=== PATIENT | female | born 1955 | race Caucasian/White ===

== ENCOUNTER 2019-12-11 12:00 | Emergency (ER) | payer MEDICAID, MEDICARE ==
--- NOTE | 2019-12-11 12:31 | EDM.PDOC ---
ED HPI GENERAL MEDICAL PROBLEM - General Chief Complaint: Cardiovascular Problem Stated Complaint: HEAVINESS IN CHEST Time Seen by Provider: 12/11/19 12:31 Source of Information: Reports: Patient History Limitations: Reports: No Limitations - History of Present Illness INITIAL COMMENTS - FREE TEXT/NARRATIVE: pt has been experiencing chest pressure. This has been going on for many days. She feels like she is not able to fill her lungs. Duration: Day(s): Location: Reports: Chest, Other (pt feels like she is not able to fill her lungs. ) Associated Symptoms: Reports: Cough, Shortness of Breath - Related Data Allergies Allergy/AdvReac Type Severity Reaction Status Date / Time No Known Allergies Allergy Verified 12/11/19 12:42 Home Meds: Home Meds Gabapentin [Neurontin] 2 cap PO TID 12/11/19 [History] Melatonin 3 mg PO DAILY 12/11/19 [History] Metoprolol Succinate [Toprol XL 50mg] 50 mg PO DAILY 12/11/19 [History] Omeprazole 1 cap PO BID 12/11/19 [History] Sertraline [Zoloft] 50 mg PO DAILY 12/11/19 [History] atorvaSTATin [Lipitor] 40 mg PO DAILY 12/11/19 [History] lisinopriL [Lisinopril] 1 tab PO DAILY 12/11/19 [History] metFORMIN [Glucophage] 1,000 mg PO DAILY 12/11/19 [History] traZODone HCl [Trazodone HCl] 25 mg PO BEDTIME 12/11/19 [History] ED ROS GENERAL - Review of Systems Review Of Systems: See Below Constitutional: Reports: No Symptoms HEENT: Reports: No Symptoms Respiratory: Reports: Shortness of Breath, Other (pt has chest pressure and she feels like she is not able to fill her lungs. ) Cardiovascular: Reports: Other (pt has a feeling of chest pressure. ) Endocrine: Reports: No Symptoms GI/Abdominal: Reports: No Symptoms : Reports: No Symptoms Musculoskeletal: Reports: No Symptoms ED EXAM, GENERAL - Physical Exam Exam: See Below Free Text/Narrative:: pt has a history of chronic chest pressure. This has been going on for a few weeks on and off, She also feels like she can not fill her lungs. Exam Limited By: No Limitations General Appearance: Alert, Anxious, Moderate Distress Ears: Normal TMs Nose: Normal Inspection Throat/Mouth: Normal Inspection Head: Atraumatic Neck: Normal Inspection Respiratory/Chest: Decreased Breath Sounds, Other (pt was a 1.5 pack a day smoker and hse states she quit 2 years ago. She was checked in the past for copd. ) Cardiovascular: Regular Rate, Rhythm GI/Abdominal: Soft, Non-Tender (Female) Exam: Deferred Rectal (Female) Exam: Deferred Back Exam: Normal Inspection Extremities: No Pedal Edema Neurological: Alert, Oriented, Normal Cognition Psychiatric: Normal Affect Course - Vital Signs Last Recorded V/S: Last Vital Signs Temp 36.7 C 12/11/19 12:40 Pulse 69 12/11/19 12:40 Resp 16 12/11/19 12:40 BP 127/74 12/11/19 12:40 Pulse Ox 95 12/11/19 12:40 - Orders/Labs/Meds Orders: Active Orders 24 hr Category Date Time Status EKG Documentation Completion [RC] ASDIRECTED Care 12/11/19 12:30 Active RT Aerosol Therapy [RC] ASDIRECTED Care 12/11/19 13:26 Active EKG 12 Lead [EK] Routine Ther 12/11/19 12:30 Ordered Labs: Laboratory Tests 12/11/19 12/11/19 12/11/19 Range/Units 12:40 12:40 12:40 WBC 8.0 (4.5-11.0) K/uL RBC 4.14 (3.30-5.50) M/uL Hgb 12.1 (12.0-15.0) g/dL Hct 38.0 (36.0-48.0) % MCV 92 (80-98) fL MCH 29 (27-31) pg MCHC 32 (32-36) % Plt Count 281 (150-400) K/uL Neut % (Auto) 62 (36-66) % Lymph % (Auto) 25 (24-44) % [place] % (Auto) 8 H (2-6) % Eos % (Auto) 4 (2-4) % Baso % (Auto) 1 (0-1) % Sodium 138 L (140-148) mmol/L Potassium 4.2 (3.6-5.2) mmol/L Chloride 102 (100-108) mmol/L Carbon Dioxide 27 (21-32) mmol/L Anion Gap 13.2 (5.0-14.0) mmol/L BUN 12 (7-18) mg/dL Creatinine 0.9 (0.6-1.0) mg/dL Est Cr Clr Drug Dosing 63.70 mL/min Estimated GFR (MDRD) > 60 (>60) Glucose 145 H (74-106) mg/dL Calcium 8.8 (8.5-10.1) mg/dL Total Bilirubin 0.4 (0.2-1.0) mg/dL AST 21 (15-37) U/L ALT 40 (12-78) U/L Alkaline Phosphatase 98 (46-116) U/L Troponin I 0.022 (0.000-0.056) ng/mL Total Protein 7.0 (6.4-8.2) g/dL Albumin 3.4 (3.4-5.0) g/dL Globulin 3.6 H (2.3-3.5) g/dL Albumin/Globulin Ratio 0.9 L (1.2-2.2) Urine Color (YELLOW) Urine Appearance (CLEAR) Urine pH (5.0-8.0) Ur Specific [place] (1.008-1.030) Urine Protein (NEGATIVE) mg/dL Urine Glucose (UA) (NEGATIVE) mg/dL Urine Ketones (NEGATIVE) mg/dL Urine Occult Blood (NEGATIVE) Urine Nitrite (NEGATIVE) Urine Bilirubin (NEGATIVE) Urine Urobilinogen (0.2-1.0) EU/dL Ur Leukocyte Esterase (NEGATIVE) Urine RBC (0-5) Urine WBC (0-5) Ur Epithelial Cells Amorphous Sediment Urine Bacteria Urine Mucus 12/11/19 Range/Units 12:50 WBC (4.5-11.0) K/uL RBC (3.30-5.50) M/uL Hgb (12.0-15.0) g/dL Hct (36.0-48.0) % MCV (80-98) fL MCH (27-31) pg MCHC (32-36) % Plt Count (150-400) K/uL Neut % (Auto) (36-66) % Lymph % (Auto) (24-44) % [place] % (Auto) (2-6) % Eos % (Auto) (2-4) % Baso % (Auto) (0-1) % Sodium (140-148) mmol/L Potassium (3.6-5.2) mmol/L Chloride (100-108) mmol/L Carbon Dioxide (21-32) mmol/L Anion Gap (5.0-14.0) mmol/L BUN (7-18) mg/dL Creatinine (0.6-1.0) mg/dL Est Cr Clr Drug Dosing mL/min Estimated GFR (MDRD) (>60) Glucose (74-106) mg/dL Calcium (8.5-10.1) mg/dL Total Bilirubin (0.2-1.0) mg/dL AST (15-37) U/L ALT (12-78) U/L Alkaline Phosphatase (46-116) U/L Troponin I (0.000-0.056) ng/mL Total Protein (6.4-8.2) g/dL Albumin (3.4-5.0) g/dL Globulin (2.3-3.5) g/dL Albumin/Globulin Ratio (1.2-2.2) Urine Color Yellow (YELLOW) Urine Appearance Clear (CLEAR) Urine pH 6.0 (5.0-8.0) Ur Specific [place] 1.010 (1.008-1.030) Urine Protein Negative (NEGATIVE) mg/dL Urine Glucose (UA) Negative (NEGATIVE) mg/dL Urine Ketones Negative (NEGATIVE) mg/dL Urine Occult Blood Negative (NEGATIVE) Urine Nitrite Negative (NEGATIVE) Urine Bilirubin Negative (NEGATIVE) Urine Urobilinogen 0.2 (0.2-1.0) EU/dL Ur Leukocyte Esterase Negative (NEGATIVE) Urine RBC 0-5 (0-5) Urine WBC 0-5 (0-5) Ur Epithelial Cells Few Amorphous Sediment Not seen Urine Bacteria Rare Urine Mucus Not seen Meds: Medications Discontinued Medications Generic Name Dose Route Start Last Admin Trade Name Freq PRN Reason Stop Dose Admin Albuterol 2.5 mg 12/11/19 13:26 12/11/19 13:44 Proventil Neb Soln NEB 12/11/19 13:27 2.5 mg ONETIME ONE Administration - Re-Assessments/Exams Free Text/Narrative Re-Assessment/Exam: 12/11/19 14:21 pt had a normal ekg. Her chest xray revealed some chronic lung changes. She has chest pressure. Her trop is normal. Departure - Departure Time of Disposition: 14:13 Disposition: Home, Self-Care 01 Condition: Fair Clinical Impression: Atypical chest pain Referrals: Shira Ellington DO [Primary Care Provider] - Forms: ED Department Discharge Care Plan Goals: schedule a exercise cardiolyte, pt is to return if her symptoms get worse, albuterol inhaler 2 puffs bid. Sepsis Event Note - Focused Exam Vital Signs: Vital Signs Temp Pulse Resp BP Pulse Ox 12/11/19 12:40 36.7 C 69 16 127/74 95 12/11/19 12:24 36.7 C 69 16 127/74 95 Date Exam was Performed: 12/11/19 Time Exam was Performed: 14:17 - My Orders Last 24 Hours: My Active Orders 12/11/19 12:30 EKG Documentation Completion [RC] ASDIRECTED EKG 12 Lead [EK] Routine 12/11/19 13:26 RT Aerosol Therapy [RC] ASDIRECTED - Assessment/Plan Last 24 Hours: My Active Orders 12/11/19 12:30 EKG Documentation Completion [RC] ASDIRECTED EKG 12 Lead [EK] Routine 12/11/19 13:26 RT Aerosol Therapy [RC] ASDIRECTED
--- NOTE | 2019-12-11 13:23 | CR ---
CHEST: 2 view CLINICAL HISTORY:Chest pressure COMPARISON:None FINDINGS: The heart size, pulmonary vascularity and hilar structures are normal. No infiltrate effusion or pneumothorax is seen. There are atherosclerotic changes in the aorta. There is mild hyperaeration. IMPRESSION: No acute cardiopulmonary process. Mild hyperaeration
[2019-12-11] MEDS ORDERED: Albuterol 0.083% 2.5 MG/3 ML Neb Soln NEB ONE (13:26)
== END 2019-12-11 14:26 | disposition home or self-care (01) ==
LOC: JP.ED 12:00
DX: R07.89 Other chest pain (principal); Z79.899 Other long term (current) drug therapy
CPT/HCPCS: 36415; 71046; 71046-26; 80053; 81001; 84484; 85025; 93005; 93010; 94640; 99284; 99285-25

== ENCOUNTER 2021-04-01 06:23 | Day surgery (SDC) | payer MEDICARE ==
[2021-04-01] MEDS ORDERED: Sodium Chloride 0.9% 1,000 ML IV SCH (06:45)
[2021-04-01] MEDS ORDERED: Propofol 200 MG/20 ML SDV ONE (07:11)
[2021-04-01] MEDS ORDERED: fentaNYL 100 MCG/2 ML SDV ONE (07:11)
--- NOTE | 2021-04-02 21:48 | OR ---
DATE OF PROCEDURE: 04/01/2021 SURGEON: Robert Bravo MD PROCEDURE: Esophagogastroduodenoscopy. FINDINGS: Mild inflammation at the GE junction (biopsied in all 4 quadrants using cold biopsy forceps). COMPLICATIONS: None. BUYERS' AGENT: None. ANESTHESIA: MAC. PREOPERATIVE DIAGNOSIS: Epigastric pain. POSTOPERATIVE DIAGNOSIS: Epigastric pain. RISKS: Risks, benefits, alternatives, and limitations, including, but not limited to, infection, bleeding, perforation, false positives, and false negatives, were explained to the patient, who wished to proceed. PROCEDURE IN DETAIL: The patient was placed in the left lateral decubitus position. The EGD scope was introduced and advanced atraumatically to the 2nd part of the duodenum. No evidence of duodenitis or ulceration was noted. In the stomach itself, there was no gastritis or ulceration. No retained food. The GE junction showed mild inflammation concerning for reflux disease. This was biopsied in all 4 quadrants using cold biopsy forceps. The air was removed from the stomach. The remaining of the esophagus was inspected without abnormality. The patient tolerated the procedure well. Robert Bravo MD /[id number]
== END 2021-04-01 09:10 | disposition home or self-care (01) ==
LOC: JP.SDS 06:23
PROVIDERS: ATTEND Surgery
DX: K20.90 Esophagitis, unspecified without bleeding (principal); I10 Essential (primary) hypertension; I25.10 Atherosclerotic heart disease of native coronary artery without angina pectoris; G47.33 Obstructive sleep apnea (adult) (pediatric); E11.9 Type 2 diabetes mellitus without complications; F17.200 Nicotine dependence, unspecified, uncomplicated
CPT/HCPCS: 43239; J2704; J3010; J7030

== ENCOUNTER 2021-04-28 10:41 | Emergency (ER) | payer MEDICARE ==
--- NOTE | 2021-04-28 11:42 | CR ---
CHEST: 2 view CLINICAL HISTORY:Chest pressure COMPARISON:2020 FINDINGS: The heart size, pulmonary vascularity and hilar structures are normal. No infiltrate effusion or pneumothorax is seen. There are atherosclerotic changes in the aorta. IMPRESSION: No acute cardiopulmonary process.
--- NOTE | 2021-04-28 12:27 | EDM.PDOC ---
ED HPI GENERAL MEDICAL PROBLEM - General Chief Complaint: Chest Pain Stated Complaint: MEDICAL [facility]IA [facility] Time Seen by Provider: 04/28/21 10:53 Source of Information: Reports: Patient, EMS History Limitations: Reports: No Limitations - History of Present Illness INITIAL COMMENTS - FREE TEXT/NARRATIVE: Lucie is a 65-year-old female presenting to the ED via [facility] with complaint of chest tightness that has been ongoing for the last 1 to 2 weeks. The patient reports of feeling like she is having a hard time getting her breath. She rates her pain at a 2 out of 10. She did take an aspirin 81 mg and was given 3 subsequent additional aspirins by EMS. She has a history for coronary disease status post stent placement several years ago. She is unclear whether this is similar pain to that. Patient is currently symptom-free she did receive a spray of nitro by EMS which completely resolved her symptoms. The patient has been experiencing nasal congestion and postnasal drip this fall. She states that each year she starts to have this until spring which is consistent with seasonal allergies. She has had a dry cough. She states at times it hurts to take a deep breath then or she feels like she cannot take a deep breath in. Patient is very vague concerning the symptoms. It does not seem that she has been experiencing much in the way of exertional symptoms although she says that if she is very active she does get more short of breath. She states that she is not very active because of sight issues. - Related Data Allergies Allergy/AdvReac Type Severity Reaction Status Date / Time No Known Allergies Allergy Verified 04/28/21 10:45 Home Meds: Home Meds Gabapentin [Neurontin] 200 mg PO TID 12/11/19 [History] Melatonin 3 mg PO BEDTIME 12/11/19 [History] Metoprolol Succinate [Toprol XL 50mg] 50 mg PO DAILY 12/11/19 [History] Omeprazole 20 mg PO BIDMEALS 12/11/19 [History] Sertraline [Zoloft] 200 mg PO DAILY 12/11/19 [History] metFORMIN [Glucophage] 1,000 mg PO BEDTIME 12/11/19 [History] traZODone HCl [Trazodone HCl] 100 mg PO BEDTIME 12/11/19 [History] Albuterol Sulfate [Albuterol Sulfate Hfa] 2 puff INH BID 03/29/21 [History] Aspirin 81 mg PO DAILY 03/29/21 [History] Betamethasone Dipropionate [Diprolene AF 0.05% Crm] 1 applic TOP BID 03/29/21 [History] Carboxymethylcellulose Sodium [Refresh Liquigel 1%] 1 drop EYEBOTH DAILY PRN 03/29/21 [History] Hydrocortisone [Hydrocortisone 2.5% Crm] 1 applic TOP BID 03/29/21 [History] Mineral Oil/Petrolatum,White [Genteal Pm Ointment] 1 drop EYEBOTH BEDTIME 03/29/21 [History] Multivitamin with Minerals [Multiple Vitamin] 1 tab PO DAILY 03/29/21 [History] Nitroglycerin [Nitrostat] 0.4 mg PO ASDIRECTED 03/29/21 [History] [place]-3 Fatty Acids [Maxepa] 1,000 mg PO DAILY 03/29/21 [History] Vitamin B Complex [B Complex] 1 tab PO DAILY 03/29/21 [History] atorvaSTATin [Lipitor] 40 mg PO BEDTIME 03/29/21 [History] risperiDONE [Risperdal] 0.5 mg PO BID 03/29/21 [History] Past Medical History HEENT History: Reports: Cataract, Impaired Vision, Other (See Below) Other HEENT History: dry eyes Cardiovascular History: Reports: High Cholesterol, Hypertension, Stents Respiratory History: Reports: Sleep Apnea Other Respiratory History: cpap- hasnt been using Gastrointestinal History: Reports: None, GERD Genitourinary History: Reports: None 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: Musculoskeletal History: Reports: Arthritis, Back Pain, Chronic Neurological History: Reports: None Psychiatric History: Reports: Anxiety, Depression Endocrine/Metabolic History: Reports: Diabetes, Type II Hematologic History: Reports: None Immunologic History: Reports: None Oncologic (Cancer) History: Reports: Malignant Melanoma Dermatologic History: Reports: Other (See Below) Other Dermatologic History: benign cyst removed from neck - Infectious Disease History Infectious Disease History: Reports: Chicken Pox, Measles - Past Surgical History Head Surgeries/Procedures: Reports: None HEENT Surgical History: Reports: Cataract Surgery Cardiovascular Surgical History: Reports: Coronary Artery Stent Respiratory Surgical History: Reports: None GI Surgical History: Reports: Colonoscopy Female Surgical History: Reports: Hysterectomy Endocrine Surgical History: Reports: None Neurological Surgical History: Reports: None Musculoskeletal Surgical History: Reports: Carpal Tunnel, Shoulder Surgery Oncologic Surgical History: Reports: None Dermatological Surgical History: Reports: None Social & Family History - Tobacco Use Tobacco Use Status *Q: Former Tobacco User Used Tobacco, but Quit: Yes Month/Year Tobacco Last Used: 2018 - Caffeine Use Caffeine Use: Reports: Coffee ED ROS GENERAL - Review of Systems Review Of Systems: See Below Constitutional: Reports: No Symptoms HEENT: Reports: Rhinitis, Sinus Problem, Vision Change (Patient has chronic vision problems) Respiratory: Reports: Shortness of Breath Cardiovascular: Reports: Chest Pain (Chest tightness but not pain), Dyspnea on Exertion (Possibly) Endocrine: Reports: No Symptoms GI/Abdominal: Reports: No Symptoms : Reports: No Symptoms Musculoskeletal: Reports: No Symptoms Skin: Reports: No Symptoms Neurological: Reports: No Symptoms Psychiatric: Reports: No Symptoms Hematologic/Lymphatic: Reports: No Symptoms Immunologic: Reports: Seasonal Allergy ED EXAM, GENERAL - Physical Exam Exam: See Below Exam Limited By: No Limitations General Appearance: Alert, No Apparent Distress Eye Exam: Bilateral Eye: EOMI, PERRL Nose: Nasal Swelling, Clear Rhinorrhea Throat/Mouth: Normal Inspection, Normal Oropharynx, Normal Voice, No Airway Compromise Head: Atraumatic, Normocephalic Neck: Normal Inspection, Supple, Non-Tender, Full Range of Motion Respiratory/Chest: No Respiratory Distress, Lungs Clear, Normal Breath Sounds, No Accessory Muscle Use, Chest Non-Tender Cardiovascular: Normal Peripheral Pulses, Regular Rate, Rhythm, No Murmur Peripheral Pulses: 2+: Radial (L), Radial (R), Posterior Tibial (L), Posterior Tibial (R) GI/Abdominal: Normal Bowel Sounds, Soft, Non-Tender Back Exam: Normal Inspection Extremities: Normal Inspection, Normal Range of Motion, Normal Capillary Refill Neurological: Alert, Oriented, Normal Cognition, No Motor/Sensory Deficits Psychiatric: Normal Affect, Normal Mood, Anxious Skin Exam: Warm, Dry, Intact, Normal Color #1 Interpretation EKG Date: 04/28/21 Time: 10:58 Rhythm: NSR Rate (Beats/Min): 69 [place]: Normal P-Wave: Present QRS: Normal ST-T: Normal QT: Normal Comparison: No Change (No change when compared to previous EKG on 12/01/2019.) Course - Vital Signs Last Recorded V/S: Last Vital Signs Temp 36.4 C 04/28/21 10:42 Pulse 68 04/28/21 12:21 Resp 16 04/28/21 12:21 BP 124/72 04/28/21 12:21 Pulse Ox 95 04/28/21 12:21 - Orders/Labs/Meds Orders: Active Orders 24 hr Category Date Time Status EKG 12 Lead [EK] Routine Ther 04/28/21 10:53 Ordered Labs: Laboratory Tests 04/28/21 04/28/21 Range/Units 11:09 11:09 WBC 10.1 (4.5-11.0) K/uL RBC 3.95 (3.30-5.50) M/uL Hgb 11.3 L (12.0-15.0) g/dL Hct 35.2 L (36.0-48.0) % MCV 89 (80-98) fL MCH 29 (27-31) pg MCHC 32 (32-36) % Plt Count 260 (150-400) K/uL Neut % (Auto) 68.3 H (36-66) % Lymph % (Auto) 18.5 L (24-44) % [place] % (Auto) 8.9 H (2-6) % Eos % (Auto) 3.7 (2-4) % Baso % (Auto) 0.6 (0-1) % Sodium 139 L (140-148) mmol/L Potassium 4.2 (3.6-5.2) mmol/L Chloride 104 (100-108) mmol/L Carbon Dioxide 26 (21-32) mmol/L Anion Gap 13.2 (5.0-14.0) mmol/L BUN 19 H D (7-18) mg/dL Creatinine 0.9 (0.6-1.0) mg/dL Est Cr Clr Drug Dosing 62.86 mL/min Estimated GFR (MDRD) > 60 (>60) Glucose 126 H (74-106) mg/dL Calcium 8.4 L (8.5-10.1) mg/dL Total Bilirubin 0.2 (0.2-1.0) mg/dL AST 20 (15-37) U/L ALT 28 (12-78) U/L Alkaline Phosphatase 86 (46-116) U/L Troponin I < 0.017 (0.000-0.056) ng/mL C-Reactive Protein 0.11 (0.0-0.3) mg/dL Total Protein 6.5 (6.4-8.2) g/dL Albumin 3.1 L (3.4-5.0) g/dL Globulin 3.4 (2.3-3.5) g/dL Albumin/Globulin Ratio 0.9 L (1.2-2.2) - Radiology Interpretation Free Text/Narrative:: I reviewed the patient's chest x-ray as well as the report. There is no acute cardiopulmonary abnormalities. - Re-Assessments/Exams Free Text/Narrative Re-Assessment/Exam: 04/28/21 12:36 reviewed the patient's labs showing a normal CBC, comprehensive metabolic panel, troponin, and C-reactive protein. Her EKG is also unremarkable showing normal sinus rhythm with a rate of 69 bpm and no evidence for ST elevation or depression. I feeling is that her symptoms are more attributed to seasonal allergies, postnasal drip and bronchospasm. I recommend that she take Flonase 2 sprays in each nostril twice daily as well as one of the [id number] allergy medicines like Zyrtec, Claritin, or Jada. If not improving she should follow-up with her primary care provider. At this time she is suitable for discharge in satisfactory condition. Indications return to the ED were discussed. Patient is in agreement with this plan. Departure - Departure Time of Disposition: 12:25 Disposition: Home, Self-Care 01 Clinical Impression: Chest tightness Seasonal allergic rhinitis Qualifiers: Allergic rhinitis trigger: unspecified Qualified Code(s): J30.2 - Other seasonal allergic rhinitis Instructions: Allergic Rhinitis, Adult Referrals: Catrina Lucia PA-C [Primary Care Provider] - Forms: ED Department Discharge Care Plan Goals: Your work-up today has not shown any evidence of abnormalities of the heart or lungs. I suspect that the majority of your symptoms are arising from your seasonal allergies causing allergic rhinitis and chronic postnasal drip. I would recommend using [id number] Flonase 2 sprays in each nostril twice daily and taking one of the [id number] allergy medicines like Zyrtec, Jada, or Claritin. Follow-up with your primary provider if not improving. Sepsis Event Note (ED) - Evaluation Sepsis Screening Result: No Definite Risk - Focused Exam Vital Signs: Vital Signs Temp Pulse Resp BP Pulse Ox 04/28/21 12:21 68 16 124/72 95 04/28/21 10:42 36.4 C 74 14 132/78 97 - Problem List & Annotations (1) Chest tightness SNOMED Code(s): 66576874 Code(s): R07.89 - OTHER CHEST PAIN Status: Acute Priority: High Current Visit: Yes (2) Seasonal allergic rhinitis SNOMED Code(s): 671491863 Code(s): J30.2 - OTHER SEASONAL ALLERGIC RHINITIS Status: Acute Priority: High Current Visit: Yes Qualifiers: Allergic rhinitis trigger: unspecified Qualified Code(s): J30.2 - Other seasonal allergic rhinitis - Problem List Review Problem List Initiated/Reviewed/Updated: Yes - My Orders Last 24 Hours: My Active Orders 04/28/21 10:53 EKG 12 Lead [EK] Routine - Assessment/Plan Last 24 Hours: My Active Orders 04/28/21 10:53 EKG 12 Lead [EK] Routine
== END 2021-04-28 12:43 | disposition home or self-care (01) ==
LOC: JP.ED 10:41
DX: R07.89 Other chest pain (principal); J30.2 Other seasonal allergic rhinitis; E78.00 Pure hypercholesterolemia, unspecified; I10 Essential (primary) hypertension; K21.9 Gastro-esophageal reflux disease without esophagitis; M19.90 Unspecified osteoarthritis, unspecified site; E11.9 Type 2 diabetes mellitus without complications; Z87.891 Personal history of nicotine dependence; Z79.82 Long term (current) use of aspirin; Z79.899 Other long term (current) drug therapy; Z95.5 Presence of coronary angioplasty implant and graft
CPT/HCPCS: 36415; 71046; 71046-26; 80053; 84484; 85025; 86140; 93005; 99285-25

== ENCOUNTER 2022-09-19 10:15 | Emergency (ER) | payer MEDICARE ==
[2022-09-19 12:00] LABS: ESTIMATED GFR 81 mL/min (>60)
[2022-09-19] MEDS ORDERED: risperiDONE 0.5 MG Tab PO ONE (12:41)
[2022-09-19] MEDS ORDERED: Gabapentin 100 MG Cap PO ONE (12:41)
[2022-09-19 13:27] LABS: CORONAVIRUS COVID-19 NAA NEGATIVE (NEGATIVE)
== END 2022-09-19 14:02 | disposition home or self-care (01) ==
LOC: JP.ED 10:15
DX: R53.1 Weakness (principal); Z87.891 Personal history of nicotine dependence; Z20.822 Contact with and (suspected) exposure to COVID-19
CPT/HCPCS: 0241U; 36415; 70450; 80053; 82550; 84443; 85027; 99285; A9270; 99283

== ENCOUNTER 2022-09-20 07:33 | Observation (INO) | payer MEDICARE ==
[2022-09-20] MEDS ORDERED: risperiDONE 0.5 MG Tab PO ONE (08:05)
[2022-09-20] MEDS ORDERED: Gabapentin 100 MG Cap PO ONE (08:05)
[2022-09-20] MEDS ORDERED: Sodium Chloride 0.9% 1,000 ML IV SCH (09:15)
[2022-09-20] MEDS ORDERED: Acetaminophen 500 MG Tab PO ONE (10:33)
[2022-09-20] MEDS ORDERED: Benzonatate 100 MG Cap PO PRN (12:39)
[2022-09-20] MEDS ORDERED: Ondansetron 4 MG/2 ML SDV IV PRN (12:39)
[2022-09-20] MEDS ORDERED: Albuterol 0.083% 2.5 MG/3 ML Neb Soln NEB PRN (12:39)
[2022-09-20] MEDS ORDERED: Magnesium Hydroxide 400 MG/5 ML Susp 30 ML Cup PO PRN (12:39)
[2022-09-20] MEDS ORDERED: Ondansetron 4 MG Tab.DIS PO PRN (12:39)
[2022-09-20] MEDS ORDERED: guaiFENesin/Dextromethorphan 100-10 MG/5 ML Soln 10 ML Cup PO PRN (12:39)
[2022-09-20] MEDS: Sodium Chloride 0.9% 1,000 ML IV SCH ×2 (13:38→21:40)
[2022-09-20] MEDS ORDERED: Azithromycin 250 MG Tab PO SCH (14:00)
[2022-09-20] MEDS: Enoxaparin 40 MG/0.4 ML Syringe SUBCUT SCH (14:27)
[2022-09-20] MEDS: Gabapentin 100 MG Cap PO SCH ×2 (15:15→21:31)
[2022-09-20] MEDS: Acetaminophen 325 MG Tab PO PRN (19:46)
[2022-09-20] MEDS: Lactobacillus Rhamnosus GG (Probiotic) Cap PO SCH (21:31)
[2022-09-20] MEDS: traZODone 50 MG Tab PO SCH (21:31)
[2022-09-20] MEDS: risperiDONE 0.5 MG Tab PO SCH (21:31)
[2022-09-20] MEDS: Melatonin 3 MG Tab PO SCH (21:31)
[2022-09-20] MEDS: atorvaSTATin 20 MG Tab PO SCH (21:31)
[2022-09-20] MEDS: metFORMIN 500 MG Tab PO SCH (21:32)
[2022-09-21] MEDS: Sodium Chloride 0.9% 1,000 ML IV SCH ×2 (05:42→16:45)
[2022-09-21] MEDS: Pantoprazole 40 MG Tab.CR PO SCH (07:53)
[2022-09-21] MEDS: Acetaminophen 325 MG Tab PO PRN ×2 (08:04→21:14)
[2022-09-21] MEDS ORDERED: Sodium Chloride 0.9% 1,000 ML IV SCH (08:15)
[2022-09-21] MEDS: Gabapentin 100 MG Cap PO SCH ×3 (08:42→21:14)
[2022-09-21] MEDS: Metoprolol Succinate 50 MG Tab.ER PO SCH (08:42)
[2022-09-21] MEDS: metFORMIN 500 MG Tab PO SCH ×2 (08:47→21:11)
[2022-09-21] MEDS: Aspirin 81 MG Tab.Chew PO SCH (08:48)
[2022-09-21] MEDS: risperiDONE 0.5 MG Tab PO SCH ×2 (08:48→21:13)
[2022-09-21] MEDS: Multivitamins with Iron/Calcium/Folic Acid/Minerals Tab PO SCH (08:49)
[2022-09-21] MEDS: Lactobacillus Rhamnosus GG (Probiotic) Cap PO SCH ×2 (08:49→21:11)
[2022-09-21] MEDS: Vitamin B Complex Tab PO SCH (08:49)
[2022-09-21] MEDS: Sertraline 50 MG Tab PO SCH (08:49)
[2022-09-21] MEDS: cefTRIAXone 1 GM in Sodium Chloride 0.9% 50 ML IV SCH (10:51)
[2022-09-21] MEDS: Doxycycline 100 MG in Sodium Chloride 0.9% 100 ML IV SCH ×2 (11:53→21:16)
[2022-09-21] MEDS: Enoxaparin 40 MG/0.4 ML Syringe SUBCUT SCH (15:04)
[2022-09-21] MEDS: Melatonin 3 MG Tab PO SCH (21:12)
[2022-09-21] MEDS: atorvaSTATin 20 MG Tab PO SCH (21:12)
[2022-09-21] MEDS: traZODone 50 MG Tab PO SCH (21:13)
[2022-09-22] MEDS: Sodium Chloride 0.9% 1,000 ML IV SCH ×3 (01:36→23:36)
[2022-09-22] MEDS: Pantoprazole 40 MG Tab.CR PO SCH (07:50)
[2022-09-22] MEDS ORDERED: Potassium Chloride 20 MEQ Tab.ER PO ONE (08:30)
[2022-09-22] MEDS: Gabapentin 100 MG Cap PO SCH ×3 (08:54→21:32)
[2022-09-22] MEDS: Lactobacillus Rhamnosus GG (Probiotic) Cap PO SCH ×2 (08:54→21:32)
[2022-09-22] MEDS: Aspirin 81 MG Tab.Chew PO SCH (08:54)
[2022-09-22] MEDS: metFORMIN 500 MG Tab PO SCH ×2 (08:54→21:32)
[2022-09-22] MEDS: Vitamin B Complex Tab PO SCH (08:54)
[2022-09-22] MEDS: Metoprolol Succinate 50 MG Tab.ER PO SCH (08:55)
[2022-09-22] MEDS: risperiDONE 0.5 MG Tab PO SCH ×2 (08:55→21:32)
[2022-09-22] MEDS: Sertraline 50 MG Tab PO SCH (08:55)
[2022-09-22] MEDS: Multivitamins with Iron/Calcium/Folic Acid/Minerals Tab PO SCH (08:55)
[2022-09-22] MEDS ORDERED: Potassium Chloride 20 MEQ Tab.ER ONE (08:59)
[2022-09-22] MEDS: cefTRIAXone 1 GM in Sodium Chloride 0.9% 50 ML IV SCH (09:01)
[2022-09-22] MEDS: Doxycycline 100 MG in Sodium Chloride 0.9% 100 ML IV SCH (11:29)
[2022-09-22] MEDS: Enoxaparin 40 MG/0.4 ML Syringe SUBCUT SCH (15:19)
[2022-09-22] MEDS: Acetaminophen 325 MG Tab PO PRN (15:23)
[2022-09-22] MEDS: traZODone 50 MG Tab PO SCH (21:32)
[2022-09-22] MEDS: atorvaSTATin 20 MG Tab PO SCH (21:32)
[2022-09-22] MEDS: Melatonin 3 MG Tab PO SCH (21:32)
[2022-09-22] MEDS: Doxycycline 100 MG Cap PO SCH (21:32)
[2022-09-23] MEDS: Pantoprazole 40 MG Tab.CR PO SCH (08:00)
[2022-09-23] MEDS: metFORMIN 500 MG Tab PO SCH ×2 (08:01→20:54)
[2022-09-23] MEDS: Multivitamins with Iron/Calcium/Folic Acid/Minerals Tab PO SCH (08:01)
[2022-09-23] MEDS: Vitamin B Complex Tab PO SCH (08:01)
[2022-09-23] MEDS: Doxycycline 100 MG Cap PO SCH ×2 (08:01→20:55)
[2022-09-23] MEDS: risperiDONE 0.5 MG Tab PO SCH ×2 (08:01→20:54)
[2022-09-23] MEDS: Sertraline 50 MG Tab PO SCH (08:01)
[2022-09-23] MEDS: Aspirin 81 MG Tab.Chew PO SCH (08:01)
[2022-09-23] MEDS: Lactobacillus Rhamnosus GG (Probiotic) Cap PO SCH ×2 (08:02→20:54)
[2022-09-23] MEDS: Gabapentin 100 MG Cap PO SCH ×3 (08:02→21:00)
[2022-09-23] MEDS: Metoprolol Succinate 50 MG Tab.ER PO SCH (08:03)
[2022-09-23] MEDS: cefTRIAXone 1 GM in Sodium Chloride 0.9% 50 ML IV SCH (09:26)
[2022-09-23] MEDS: Sodium Chloride 0.9% 1,000 ML IV SCH ×2 (09:26→19:48)
[2022-09-23] MEDS ORDERED: Potassium Chloride 20 MEQ Tab.ER PO ONE (10:00)
[2022-09-23] MEDS: Enoxaparin 40 MG/0.4 ML Syringe SUBCUT SCH (15:13)
[2022-09-23] MEDS: Hypromellose 0.3% Ophth Soln 15 ML Bottle EYEBOTH PRN (17:14)
[2022-09-23] MEDS: atorvaSTATin 20 MG Tab PO SCH (20:54)
[2022-09-23] MEDS: Melatonin 3 MG Tab PO SCH (20:54)
[2022-09-23] MEDS: traZODone 50 MG Tab PO SCH (20:55)
[2022-09-24] MEDS: Sodium Chloride 0.9% 1,000 ML IV SCH (04:03)
[2022-09-24] MEDS: Pantoprazole 40 MG Tab.CR PO SCH (07:37)
[2022-09-24] MEDS: Aspirin 81 MG Tab.Chew PO SCH (08:33)
[2022-09-24] MEDS: Lactobacillus Rhamnosus GG (Probiotic) Cap PO SCH ×2 (08:33→21:08)
[2022-09-24] MEDS: Gabapentin 100 MG Cap PO SCH ×3 (08:34→21:07)
[2022-09-24] MEDS: Doxycycline 100 MG Cap PO SCH ×2 (08:34→21:08)
[2022-09-24] MEDS: metFORMIN 500 MG Tab PO SCH ×2 (08:34→21:08)
[2022-09-24] MEDS: risperiDONE 0.5 MG Tab PO SCH ×2 (08:35→21:08)
[2022-09-24] MEDS: Multivitamins with Iron/Calcium/Folic Acid/Minerals Tab PO SCH (08:35)
[2022-09-24] MEDS: Metoprolol Succinate 50 MG Tab.ER PO SCH (08:35)
[2022-09-24] MEDS: Vitamin B Complex Tab PO SCH (08:36)
[2022-09-24] MEDS: Hypromellose 0.3% Ophth Soln 15 ML Bottle EYEBOTH PRN (08:38)
[2022-09-24] MEDS: Sertraline 50 MG Tab PO SCH (09:19)
[2022-09-24] MEDS: Cefdinir 300 MG Cap PO SCH ×2 (09:21→21:08)
[2022-09-24] MEDS ORDERED: Loperamide 2 MG Cap PO PRN (12:27)
[2022-09-24] MEDS: Enoxaparin 40 MG/0.4 ML Syringe SUBCUT SCH (14:26)
[2022-09-24] MEDS: traZODone 50 MG Tab PO SCH (21:07)
[2022-09-24] MEDS: atorvaSTATin 20 MG Tab PO SCH (21:08)
[2022-09-24] MEDS: Melatonin 3 MG Tab PO SCH (21:08)
[2022-09-25] MEDS: Pantoprazole 40 MG Tab.CR PO SCH (07:46)
[2022-09-25] MEDS: Vitamin B Complex Tab PO SCH (09:01)
[2022-09-25] MEDS: Sertraline 50 MG Tab PO SCH (09:01)
[2022-09-25] MEDS: Metoprolol Succinate 50 MG Tab.ER PO SCH (09:01)
[2022-09-25] MEDS: Doxycycline 100 MG Cap PO SCH (09:01)
[2022-09-25] MEDS: Gabapentin 100 MG Cap PO SCH (09:02)
[2022-09-25] MEDS: Lactobacillus Rhamnosus GG (Probiotic) Cap PO SCH (09:02)
[2022-09-25] MEDS: Multivitamins with Iron/Calcium/Folic Acid/Minerals Tab PO SCH (09:02)
[2022-09-25] MEDS: Cefdinir 300 MG Cap PO SCH (09:02)
[2022-09-25] MEDS: Aspirin 81 MG Tab.Chew PO SCH (09:02)
[2022-09-25] MEDS: metFORMIN 500 MG Tab PO SCH (09:02)
[2022-09-25] MEDS: risperiDONE 0.5 MG Tab PO SCH (09:02)
[2022-09-25] MEDS: Enoxaparin 40 MG/0.4 ML Syringe SUBCUT SCH (14:22)
== END 2022-09-25 15:34 | disposition home health service (06) ==
LOC: JP.ED 07:33 → INTOOBSV 12:18 → JP.MS 12:18
PROVIDERS: ADMIT Internal Medicine; ATTEND Internal Medicine
DX: T79.6XXA Traumatic ischemia of muscle, initial encounter (principal); S27.329A Contusion of lung, unspecified, initial encounter; J18.9 Pneumonia, unspecified organism; R53.1 Weakness; R07.89 Other chest pain; R29.6 Repeated falls; I10 Essential (primary) hypertension; E78.00 Pure hypercholesterolemia, unspecified; K21.9 Gastro-esophageal reflux disease without esophagitis; F41.9 Anxiety disorder, unspecified; F32.A Depression, unspecified; M19.90 Unspecified osteoarthritis, unspecified site; G47.30 Sleep apnea, unspecified; E11.42 Type 2 diabetes mellitus with diabetic polyneuropathy; Z79.82 Long term (current) use of aspirin; Z79.84 Long term (current) use of oral hypoglycemic drugs; Z79.899 Other long term (current) drug therapy; Z95.5 Presence of coronary angioplasty implant and graft; Z98.890 Other specified postprocedural states; W18.39XA Other fall on same level, initial encounter
CPT/HCPCS: 36415; 71045; 80048; 81001; 82550; 85025; 85027; 86140; 87070; 87205; 96360; 96361; 97110; 97116; 97161; 97165; 97530; 99222; 99232; 99238; 99284; 99285; A9270; J0696; J1650; J3490; J7030

== ENCOUNTER 2023-01-24 23:48 | Emergency (ER) | payer MEDICARE ==
[2023-01-25 00:12] LABS: APPEARANCE,URINE CLEAR (CLEAR); BILIRUBIN,URINE NEGATIVE (NEGATIVE); COLOR,URINE YELLOW (YELLOW); GLUCOSE,URINE NEGATIVE (NEGATIVE); KETONES,URINE NEGATIVE (NEGATIVE); LEUKOCYTE ESTERASE,URINE SMALL (NEGATIVE); NITRITE,URINE NEGATIVE (NEGATIVE); OCCULT BLOOD,URINE TRACE-INTACT (NEGATIVE); PH,URINE 7.5 (5.0-8.0); PROTEIN,URINE NEGATIVE (NEGATIVE); UROBILINOGEN,URINE 0.2 EU/dL (0.2-1.0)
[2023-01-25 01:06] LABS: A/G RATIO 0.8 (1.2-2.2); ALANINE AMINOTRANSFERASE,ALT 26 U/L (12-78); ALBUMIN 3.2 g/dL (3.4-5.0); ALKALINE PHOSPHATASE 108 U/L (46-116); ANION GAP 12.8 mmol/L (5.0-14.0); ASPARTATE AMNIOTRANSFERASE,AST 23 U/L (15-37); BILIRUBIN TOTAL 0.4 mg/dL (0.2-1.0); BLOOD UREA NITROGEN,BUN 7 mg/dL (7-18); C-REACTIVE PROTEIN 3.93 mg/dL (0.0-0.3); CALCIUM 8.6 mg/dL (8.5-10.1); CARBON DIOXIDE,CO2 28 mmol/L (21-32); CHLORIDE,CL 100 mmol/L (100-108); CREATINE KINASE,CK 69 U/L (26-192); CREATININE 0.7 mg/dL (0.6-1.0); EST CRCL DRUG DOSING (CG) 78.67 mL/min; ESTIMATED GFR 95 mL/min (>60); GLUCOSE RANDOM 131 mg/dL (74-106); POTASSIUM,K 3.8 mmol/L (3.6-5.2); PROTEIN TOTAL,TP 7.3 g/dL (6.4-8.2); SODIUM,NA 137 mmol/L (140-148); TROPONIN I HIGH SENSITIVITY 5.3 pg/mL (<=60.3)
[2023-01-25 01:09] LABS: BASOPHILS ABSOLUTE AUTO 0.04 K/uL (0.00-0.10); BASOPHILS PERCENT AUTO 0.4 % (0.1-1.3); EOSINOPHILS PERCENT AUTO 1.9 % (0.0-5.4); HEMATOCRIT 33.9 % (34.3-46.0); HEMOGLOBIN 11.1 g/dL (11.2-15.5); IMMATURE GRAN PERCENT AUTO 1.9 % (0.0-0.7); LYMPHOCYTES ABSOLUTE AUTO 1.32 K/uL (0.8-3.3); LYMPHOCYTES PERCENT AUTO 12.5 % (11.4-47.7); MEAN CORPUSCULAR HEMOGLOBIN 28.8 pg (31.6-35.5); MEAN CORPUSCULAR HGB CONC 32.7 g/dL (31.6-35.5); MEAN CORPUSCULAR VOLUME 87.8 fL (81.4-99.0); MONOCYTES ABSOLUTE AUTO 1.32 K/uL (0.20-0.90); MONOCYTES PERCENT AUTO 12.5 % (3.3-12.6); NEUTROPHILS ABSOLUTE AUTO 7.44 K/uL (1.0-7.6); NEUTROPHILS PERCENT AUTO 70.8 % (40.0-78.1); PLATELET COUNT,PLT 241 K/uL (130-375); RED BLOOD CELL COUNT 3.86 M/uL (3.77-5.24); WHITE BLOOD CELL COUNT,WBC 10.5 K/uL (3.2-11.0)
[2023-01-25 01:41] LABS: APPEARANCE,URINE CLEAR (CLEAR); BILIRUBIN,URINE NEGATIVE (NEGATIVE); COLOR,URINE YELLOW (YELLOW); GLUCOSE,URINE NEGATIVE (NEGATIVE); KETONES,URINE NEGATIVE (NEGATIVE); LEUKOCYTE ESTERASE,URINE NEGATIVE (NEGATIVE); NITRITE,URINE NEGATIVE (NEGATIVE); OCCULT BLOOD,URINE TRACE-INTACT (NEGATIVE); PH,URINE 6.5 (5.0-8.0); PROTEIN,URINE NEGATIVE (NEGATIVE); UROBILINOGEN,URINE 0.2 EU/dL (0.2-1.0)
[2023-01-25 01:43] LABS: AMORPHOUS SEDIMENT,URINE NOT SEEN; BACTERIA,URINE FEW; EPITHELIAL CELLS,URINE FEW; MUCUS,URINE NOT SEEN; RBC,URINE 0-5 (0-5); WBC,URINE 0-5 (0-5)
[2023-01-25] MEDS ORDERED: traZODone 50 MG Tab PO ONE (02:06)
[2023-01-25] MEDS ORDERED: Gabapentin 100 MG Cap PO ONE (02:07)
[2023-01-25] MEDS ORDERED: risperiDONE 0.5 MG Tab PO ONE (02:07)
== END 2023-01-25 10:07 | disposition home or self-care (01) ==
LOC: JP.ED 23:48
DX: R53.1 Weakness (principal); E78.00 Pure hypercholesterolemia, unspecified; I10 Essential (primary) hypertension; K21.9 Gastro-esophageal reflux disease without esophagitis; M19.90 Unspecified osteoarthritis, unspecified site; E11.9 Type 2 diabetes mellitus without complications; Z79.82 Long term (current) use of aspirin; Z79.84 Long term (current) use of oral hypoglycemic drugs; Z79.899 Other long term (current) drug therapy; Z95.5 Presence of coronary angioplasty implant and graft
CPT/HCPCS: 36415; 80053; 81001; 81003; 82550; 84484; 85025; 86140; 99285; A9270

== ENCOUNTER 2023-07-05 08:00 | Emergency (ER) | payer MEDICARE ==
[2023-07-05 08:39] LABS: BASOPHILS PERCENT AUTO 0.4 % (0.1-1.3); EOSINOPHILS ABSOLUTE AUTO 0.07 K/uL (0.00-0.40); EOSINOPHILS PERCENT AUTO 1.5 % (0.0-5.4); HEMATOCRIT 34.7 % (34.3-46.0); HEMOGLOBIN 11.5 g/dL (11.2-15.5); IMMATURE GRAN ABSOLUTE AUTO 0.03 K/uL (0.00-0.23); IMMATURE GRAN PERCENT AUTO 0.7 % (0.0-0.7); LYMPHOCYTES ABSOLUTE AUTO 0.65 K/uL (0.8-3.3); LYMPHOCYTES PERCENT AUTO 14.2 % (11.4-47.7); MEAN CORPUSCULAR HEMOGLOBIN 29.5 pg (31.6-35.5); MEAN CORPUSCULAR HGB CONC 33.1 g/dL (31.6-35.5); MONOCYTES PERCENT AUTO 15.3 % (3.3-12.6); NEUTROPHILS ABSOLUTE AUTO 3.12 K/uL (1.0-7.6); NEUTROPHILS PERCENT AUTO 67.9 % (40.0-78.1); PLATELET COUNT,PLT 189 K/uL (130-375); WHITE BLOOD CELL COUNT,WBC 4.6 K/uL (3.2-11.0)
[2023-07-05 08:46] LABS: BASOPHILS ABSOLUTE AUTO 0.02 K/uL (0.00-0.10)
[2023-07-05 09:03] LABS: A/G RATIO 0.9 (1.2-2.2); ALANINE AMINOTRANSFERASE,ALT 27 U/L (12-78); ALBUMIN 3.2 g/dL (3.4-5.0); ALKALINE PHOSPHATASE 98 U/L (46-116); ASPARTATE AMNIOTRANSFERASE,AST 29 U/L (15-37); BILIRUBIN TOTAL 0.3 mg/dL (0.2-1.0); BLOOD UREA NITROGEN,BUN 8 mg/dL (7-18); CALCIUM 8.1 mg/dL (8.5-10.1); CARBON DIOXIDE,CO2 27 mmol/L (21-32); CHLORIDE,CL 101 mmol/L (100-108); CREATINE KINASE,CK 73 U/L (26-192); CREATININE 0.7 mg/dL (0.6-1.0); EST CRCL DRUG DOSING (CG) 78.67 mL/min; ESTIMATED GFR 95 mL/min (>60); GLUCOSE RANDOM 98 mg/dL (74-106); POTASSIUM,K 4.1 mmol/L (3.6-5.2); PROTEIN TOTAL,TP 6.9 g/dL (6.4-8.2); SODIUM,NA 136 mmol/L (140-148); TROPONIN I HIGH SENSITIVITY 7.3 pg/mL (<=60.3)
[2023-07-05 09:05] LABS: ANION GAP 12.1 mmol/L (5.0-14.0)
[2023-07-05 10:36] LABS: APPEARANCE,URINE CLEAR (CLEAR); BILIRUBIN,URINE NEGATIVE (NEGATIVE); COLOR,URINE YELLOW (YELLOW); GLUCOSE,URINE NEGATIVE (NEGATIVE); KETONES,URINE NEGATIVE (NEGATIVE); LEUKOCYTE ESTERASE,URINE NEGATIVE (NEGATIVE); NITRITE,URINE NEGATIVE (NEGATIVE); OCCULT BLOOD,URINE NEGATIVE (NEGATIVE); PROTEIN,URINE NEGATIVE (NEGATIVE); UROBILINOGEN,URINE 0.2 EU/dL (0.2-1.0)
[2023-07-05 10:42] LABS: AMORPHOUS SEDIMENT,URINE RARE; BACTERIA,URINE NOT SEEN; EPITHELIAL CELLS,URINE RARE; MUCUS,URINE NOT SEEN; RBC,URINE NOT SEEN (0-5); WBC,URINE NOT SEEN (0-5)
[2023-07-05] MEDS ORDERED: Ibuprofen 400 MG Tab PO ONE (11:12)
== END 2023-07-05 12:27 | disposition home or self-care (01) ==
LOC: JP.ED 08:00
DX: G62.9 Polyneuropathy, unspecified (principal); R53.1 Weakness; I10 Essential (primary) hypertension; E78.00 Pure hypercholesterolemia, unspecified; K21.9 Gastro-esophageal reflux disease without esophagitis; E11.9 Type 2 diabetes mellitus without complications; M19.90 Unspecified osteoarthritis, unspecified site; Z95.5 Presence of coronary angioplasty implant and graft; Z90.710 Acquired absence of both cervix and uterus; Z79.82 Long term (current) use of aspirin; Z79.899 Other long term (current) drug therapy; Z79.84 Long term (current) use of oral hypoglycemic drugs
CPT/HCPCS: 36415; 80053; 81001; 82550; 83605; 84145; 84484; 85025; 93005; 99285; A9270

== ENCOUNTER 2023-07-06 05:02 | Inpatient (IN) | payer MEDICARE ==
[2023-07-06] MEDS ORDERED: Sodium Chloride 0.9% 10 ML Syringe FLUSH PRN ×2 (05:03→08:14)
[2023-07-06 05:13] LABS: BASOPHILS PERCENT AUTO 0.4 % (0.1-1.3); EOSINOPHILS ABSOLUTE AUTO 0.04 K/uL (0.00-0.40); EOSINOPHILS PERCENT AUTO 0.9 % (0.0-5.4); HEMATOCRIT 35.1 % (34.3-46.0); HEMOGLOBIN 11.7 g/dL (11.2-15.5); IMMATURE GRAN PERCENT AUTO 0.4 % (0.0-0.7); LYMPHOCYTES ABSOLUTE AUTO 0.81 K/uL (0.8-3.3); LYMPHOCYTES PERCENT AUTO 18.1 % (11.4-47.7); MEAN CORPUSCULAR HEMOGLOBIN 29.4 pg (31.6-35.5); MEAN CORPUSCULAR HGB CONC 33.3 g/dL (31.6-35.5); MEAN CORPUSCULAR VOLUME 88.2 fL (81.4-99.0); MONOCYTES ABSOLUTE AUTO 0.68 K/uL (0.20-0.90); MONOCYTES PERCENT AUTO 15.2 % (3.3-12.6); NEUTROPHILS ABSOLUTE AUTO 2.91 K/uL (1.0-7.6); PLATELET COUNT,PLT 172 K/uL (130-375); RED BLOOD CELL COUNT 3.98 M/uL (3.77-5.24); WHITE BLOOD CELL COUNT,WBC 4.5 K/uL (3.2-11.0)
[2023-07-06 05:25] LABS: A/G RATIO 0.9 (1.2-2.2); ALANINE AMINOTRANSFERASE,ALT 31 U/L (12-78); ALBUMIN 3.2 g/dL (3.4-5.0); ALKALINE PHOSPHATASE 93 U/L (46-116); ASPARTATE AMNIOTRANSFERASE,AST 35 U/L (15-37); BILIRUBIN TOTAL 0.3 mg/dL (0.2-1.0); BLOOD UREA NITROGEN,BUN 8 mg/dL (7-18); CARBON DIOXIDE,CO2 25 mmol/L (21-32); CHLORIDE,CL 98 mmol/L (100-108); CREATININE 0.9 mg/dL (0.6-1.0); EST CRCL DRUG DOSING (CG) 61.19 mL/min; ESTIMATED GFR 70 mL/min (>60); GLUCOSE RANDOM 118 mg/dL (74-106); POTASSIUM,K 3.9 mmol/L (3.6-5.2); PROTEIN TOTAL,TP 6.9 g/dL (6.4-8.2); SODIUM,NA 135 mmol/L (140-148)
[2023-07-06 05:30] LABS: LACTIC ACID 2.2 mmol/L (0.4-2.0)
[2023-07-06 05:32] LABS: APPEARANCE,URINE CLEAR (CLEAR); BILIRUBIN,URINE NEGATIVE (NEGATIVE); COLOR,URINE YELLOW (YELLOW); GLUCOSE,URINE NEGATIVE (NEGATIVE); KETONES,URINE NEGATIVE (NEGATIVE); LEUKOCYTE ESTERASE,URINE NEGATIVE (NEGATIVE); NITRITE,URINE NEGATIVE (NEGATIVE); OCCULT BLOOD,URINE NEGATIVE (NEGATIVE); PROTEIN,URINE NEGATIVE (NEGATIVE); UROBILINOGEN,URINE 0.2 EU/dL (0.2-1.0)
[2023-07-06 05:33] LABS: ANION GAP 15.9 mmol/L (5.0-14.0); BASOPHILS ABSOLUTE AUTO 0.02 K/uL (0.00-0.10); IMMATURE GRAN ABSOLUTE AUTO 0.02 K/uL (0.00-0.23)
[2023-07-06 05:39] LABS: AMORPHOUS SEDIMENT,URINE NOT SEEN; BACTERIA,URINE FEW; EPITHELIAL CELLS,URINE RARE; MUCUS,URINE NOT SEEN; RBC,URINE 0-5 (0-5); WBC,URINE 0-5 (0-5)
[2023-07-06] MEDS ORDERED: Acetaminophen 325 MG Tab PO ONE (05:43)
[2023-07-06] MEDS ORDERED: Sodium Chloride 0.9% 1,000 ML IV SCH (05:45)
[2023-07-06 05:50] LABS: INFLUENZA A NAA NEGATIVE (NEGATIVE); INFLUENZA B NAA NEGATIVE (NEGATIVE); RESPIRATORY SYNCYTIAL VIR NAA NEGATIVE (NEGATIVE)
[2023-07-06 05:55] LABS: CORONAVIRUS COVID-19 NAA POSITIVE (NEGATIVE)
[2023-07-06] MEDS ORDERED: Ondansetron 4 MG/2 ML SDV IV PRN (08:14)
[2023-07-06] MEDS ORDERED: 50% Dextrose in Water 50 ML Syringe IV PRN (08:14)
[2023-07-06] MEDS ORDERED: Polyethylene Glycol 3350 Powder 17 GM Packet PO PRN (08:14)
[2023-07-06] MEDS ORDERED: Non-Formulary Medication 1 Each (Omeprazole [Omeprazole] 40 MG Capsule.Dr) PO SCH (08:14)
[2023-07-06] MEDS ORDERED: Glucose Gel 15 GM in 37.5 GM Tube PO PRN (08:14)
[2023-07-06] MEDS ORDERED: Acetaminophen 325 MG Tab PO PRN (08:14)
[2023-07-06] MEDS ORDERED: Fluticasone NASAL Spray 16 GM Bottle NASBOTH SCH (09:00)
[2023-07-06] MEDS ORDERED: Metoprolol Succinate 50 MG Tab.ER PO SCH (09:00)
[2023-07-06] MEDS ORDERED: REMDESIVIR 200 MG in Sodium Chloride 0.9% 250 ML IV ONE (09:00)
[2023-07-06] MEDS ORDERED: Albuterol 6.7 GM Inhaler INH SCH (09:00)
[2023-07-06] MEDS ORDERED: BUSPIRONE HCL 30 MG PO SCH (09:00)
[2023-07-06] MEDS: busPIRone 10 MG Tab PO SCH ×2 (09:47→21:37)
[2023-07-06] MEDS: Aspirin 81 MG Tab.Chew PO SCH (09:47)
[2023-07-06] MEDS: Pantoprazole 40 MG Tab.CR PO SCH (09:48)
[2023-07-06] MEDS: Cetirizine 10 MG Tab PO SCH (09:48)
[2023-07-06] MEDS: Metoprolol Succinate 25 MG Tab.ER PO SCH ×2 (09:48→21:38)
[2023-07-06] MEDS: Gabapentin 100 MG Cap PO SCH ×2 (09:48→14:57)
[2023-07-06] MEDS: Enoxaparin 40 MG/0.4 ML Syringe SUBCUT SCH (09:48)
[2023-07-06] MEDS: Sertraline 50 MG Tab PO SCH (09:49)
[2023-07-06] MEDS: risperiDONE 1 MG Tab PO SCH ×2 (09:49→21:38)
[2023-07-06] MEDS: Insulin Lispro 100 Unit/ML 3 ML KwikPen SUBCUT SCH ×3 (11:17→21:36)
[2023-07-06] MEDS ORDERED: Fluticasone NASAL Spray 16 GM Bottle NASBOTH PRN (13:33)
[2023-07-06] MEDS ORDERED: Albuterol 6.7 GM Inhaler INH PRN (14:59)
[2023-07-06] MEDS: metFORMIN 500 MG Tab PO SCH (17:41)
[2023-07-06] MEDS ORDERED: Gabapentin 100 MG Cap PO SCH (21:00)
[2023-07-06] MEDS ORDERED: Non-Formulary Medication 1 Each (Melatonin [Melatonin] 1 MG Tablet) PO SCH (21:00)
[2023-07-06] MEDS ORDERED: Non-Formulary Medication 1 Each (Metformin Hcl [Metformin Hcl Er] 500 MG Tab.Er.24h) PO SCH (21:00)
[2023-07-06] MEDS ORDERED: Non-Formulary Medication 1 Each (Atorvastatin [Lipitor] 40 MG Tablet) PO SCH (21:00)
[2023-07-06] MEDS: Gabapentin 300 MG Cap PO SCH (21:37)
[2023-07-06] MEDS: traZODone 50 MG Tab PO SCH (21:38)
[2023-07-06] MEDS: Melatonin 3 MG Tab PO SCH (21:38)
[2023-07-06] MEDS: atorvaSTATin 20 MG Tab PO SCH (21:38)
[2023-07-07 06:11] LABS: HEMATOCRIT 34.7 % (34.3-46.0); HEMOGLOBIN 11.4 g/dL (11.2-15.5); MEAN CORPUSCULAR HEMOGLOBIN 29.4 pg (31.6-35.5); MEAN CORPUSCULAR HGB CONC 32.9 g/dL (31.6-35.5); MEAN CORPUSCULAR VOLUME 89.4 fL (81.4-99.0); RED BLOOD CELL COUNT 3.88 M/uL (3.77-5.24); WHITE BLOOD CELL COUNT,WBC 3.5 K/uL (3.2-11.0)
[2023-07-07 06:35] LABS: A/G RATIO 0.8 (1.2-2.2); ALANINE AMINOTRANSFERASE,ALT 26 U/L (12-78); ALBUMIN 2.9 g/dL (3.4-5.0); ALKALINE PHOSPHATASE 82 U/L (46-116); ANION GAP 8.9 mmol/L (5.0-14.0); ASPARTATE AMNIOTRANSFERASE,AST 34 U/L (15-37); BILIRUBIN TOTAL 0.3 mg/dL (0.2-1.0); BLOOD UREA NITROGEN,BUN 9 mg/dL (7-18); CALCIUM 8.2 mg/dL (8.5-10.1); CARBON DIOXIDE,CO2 27 mmol/L (21-32); CHLORIDE,CL 104 mmol/L (100-108); CREATININE 0.7 mg/dL (0.6-1.0); EST CRCL DRUG DOSING (CG) 78.98 mL/min; ESTIMATED GFR 95 mL/min (>60); GLUCOSE RANDOM 90 mg/dL (74-106); PROTEIN TOTAL,TP 6.4 g/dL (6.4-8.2); SODIUM,NA 140 mmol/L (140-148)
[2023-07-07] MEDS: Insulin Lispro 100 Unit/ML 3 ML KwikPen SUBCUT SCH ×4 (08:28→22:12)
[2023-07-07] MEDS: Gabapentin 100 MG Cap PO SCH ×2 (08:37→14:33)
[2023-07-07] MEDS: metFORMIN 500 MG Tab PO SCH ×2 (08:37→17:19)
[2023-07-07] MEDS: risperiDONE 1 MG Tab PO SCH ×2 (08:37→22:12)
[2023-07-07] MEDS: busPIRone 10 MG Tab PO SCH ×2 (08:37→22:12)
[2023-07-07] MEDS: Metoprolol Succinate 25 MG Tab.ER PO SCH ×2 (08:37→22:11)
[2023-07-07] MEDS: Sertraline 50 MG Tab PO SCH (08:37)
[2023-07-07] MEDS: Aspirin 81 MG Tab.Chew PO SCH (08:37)
[2023-07-07] MEDS: Pantoprazole 40 MG Tab.CR PO SCH (08:37)
[2023-07-07] MEDS: Cetirizine 10 MG Tab PO SCH (08:37)
[2023-07-07] MEDS: Enoxaparin 40 MG/0.4 ML Syringe SUBCUT SCH (08:37)
[2023-07-07] MEDS: REMDESIVIR 100 MG in Sodium Chloride 0.9% 100 ML IV SCH (08:42)
[2023-07-07] MEDS: traZODone 50 MG Tab PO SCH (22:11)
[2023-07-07] MEDS: atorvaSTATin 20 MG Tab PO SCH (22:11)
[2023-07-07] MEDS: Gabapentin 300 MG Cap PO SCH (22:12)
[2023-07-07] MEDS: Melatonin 3 MG Tab PO SCH (22:12)
[2023-07-08] MEDS: Insulin Lispro 100 Unit/ML 3 ML KwikPen SUBCUT SCH ×4 (07:51→20:59)
[2023-07-08] MEDS: metFORMIN 500 MG Tab PO SCH ×2 (08:24→17:05)
[2023-07-08] MEDS: Metoprolol Succinate 25 MG Tab.ER PO SCH ×2 (08:24→20:12)
[2023-07-08] MEDS: Pantoprazole 40 MG Tab.CR PO SCH (08:24)
[2023-07-08] MEDS: Cetirizine 10 MG Tab PO SCH (08:24)
[2023-07-08] MEDS: busPIRone 10 MG Tab PO SCH ×2 (08:24→20:12)
[2023-07-08] MEDS: Sertraline 50 MG Tab PO SCH (08:24)
[2023-07-08] MEDS: Gabapentin 100 MG Cap PO SCH ×2 (08:24→14:29)
[2023-07-08] MEDS: Aspirin 81 MG Tab.Chew PO SCH (08:24)
[2023-07-08] MEDS: risperiDONE 1 MG Tab PO SCH ×2 (08:25→20:11)
[2023-07-08] MEDS: Enoxaparin 40 MG/0.4 ML Syringe SUBCUT SCH (08:25)
[2023-07-08] MEDS: REMDESIVIR 100 MG in Sodium Chloride 0.9% 100 ML IV SCH (09:00)
[2023-07-08] MEDS: atorvaSTATin 20 MG Tab PO SCH (20:11)
[2023-07-08] MEDS: traZODone 50 MG Tab PO SCH (20:11)
[2023-07-08] MEDS: Melatonin 3 MG Tab PO SCH (20:11)
[2023-07-08] MEDS: Gabapentin 300 MG Cap PO SCH (20:12)
[2023-07-09] MEDS: Insulin Lispro 100 Unit/ML 3 ML KwikPen SUBCUT SCH ×2 (07:54→11:59)
[2023-07-09] MEDS: Sertraline 50 MG Tab PO SCH (08:16)
[2023-07-09] MEDS: Aspirin 81 MG Tab.Chew PO SCH (08:16)
[2023-07-09] MEDS: metFORMIN 500 MG Tab PO SCH (08:16)
[2023-07-09] MEDS: busPIRone 10 MG Tab PO SCH (08:16)
[2023-07-09] MEDS: Enoxaparin 40 MG/0.4 ML Syringe SUBCUT SCH (08:17)
[2023-07-09] MEDS: Cetirizine 10 MG Tab PO SCH (08:17)
[2023-07-09] MEDS: Pantoprazole 40 MG Tab.CR PO SCH (08:17)
[2023-07-09] MEDS: risperiDONE 1 MG Tab PO SCH (08:18)
[2023-07-09] MEDS: Metoprolol Succinate 25 MG Tab.ER PO SCH (08:18)
[2023-07-09] MEDS: Gabapentin 100 MG Cap PO SCH (08:18)
[2023-07-09] MEDS: REMDESIVIR 100 MG in Sodium Chloride 0.9% 100 ML IV SCH (08:23)
== END 2023-07-09 15:15 | disposition home or self-care (01) | DRG 179 ==
LOC: JP.ED 05:02 → JP.MS 07:11 → OBSVTOIN 07-08 17:52
PROVIDERS: ADMIT Hospitalist; ATTEND Internal Medicine
PROC: 8E0ZXY6 Isolation (ICD-10-PCS; principal; 2023-07-06)
PROC: XW033E5 Introduction of Remdesivir Anti-infective into Peripheral Vein, Percutaneous Approach, New Technology Group 5 (ICD-10-PCS; 2023-07-06)
DX: U07.1 COVID-19 (principal); K21.9 Gastro-esophageal reflux disease without esophagitis; G89.29 Other chronic pain; E11.51 Type 2 diabetes mellitus with diabetic peripheral angiopathy without gangrene; E11.40 Type 2 diabetes mellitus with diabetic neuropathy, unspecified; M54.9 Dorsalgia, unspecified; E11.42 Type 2 diabetes mellitus with diabetic polyneuropathy; I10 Essential (primary) hypertension; E78.00 Pure hypercholesterolemia, unspecified; F41.9 Anxiety disorder, unspecified; I25.10 Atherosclerotic heart disease of native coronary artery without angina pectoris; F32.A Depression, unspecified; E66.9 Obesity, unspecified; Z68.28 Body mass index [BMI] 28.0-28.9, adult; Z98.42 Cataract extraction status, left eye; Z98.41 Cataract extraction status, right eye; G47.33 Obstructive sleep apnea (adult) (pediatric); Z90.710 Acquired absence of both cervix and uterus; Z98.890 Other specified postprocedural states; Z79.82 Long term (current) use of aspirin; Z79.84 Long term (current) use of oral hypoglycemic drugs; Z79.899 Other long term (current) drug therapy; Z95.5 Presence of coronary angioplasty implant and graft
CPT/HCPCS: 0241U; 36415; 80053; 81001; 82947; 83605; 85025; 85027; 96372; 97161; 97530; 99222; 99232; 99238; 99285; 99284; A9270-GY; G0378; J1650; J3490; J7050